=== PATIENT | male | born 2000 | race Two or more races ===

== ENCOUNTER 2024-07-02 12:42 | Emergency (ER) | payer MEDICARE, BC ==
[~2024-07-02] VITALS: Ht 167.6 cm; Wt 95.3 kg
[2024-07-02 14:36] VITALS: BP 106/64; TEMP 98; O2SAT 99
== END 2024-07-02 14:37 | disposition home or self-care (01) ==
LOC: ER 13:00
DX: S01.111A Laceration without foreign body of right eyelid and periocular area, initial encounter (principal); F84.0 Autistic disorder; W01.198A Fall on same level from slipping, tripping and stumbling with subsequent striking against other object, initial encounter; Y93.E1 Activity, personal bathing and showering; Y92.098 Other place in other non-institutional residence as the place of occurrence of the external cause; Y99.8 Other external cause status

== ENCOUNTER 2024-12-18 15:38 | Emergency (ER) | payer MEDICARE, BC ==
[~2024-12-18] VITALS: Ht 172.7 cm; Wt 88.9 kg
[2024-12-18 16:03] VITALS: TEMP 98.6
[2024-12-18] MEDS ORDERED: LIDOCAINE 1%-EPI 1:100,000 20 ML VIAL ONE (16:53)
[2024-12-18] MEDS ORDERED: LET SOLN TOPICAL 8 ML UDC TP ONE (16:55)
[2024-12-18] MEDS ORDERED: TDAP [DIPH/PERTUSSIS/TET] 0.5 ML VIAL IM ONE (16:55)
[2024-12-18] MEDS: LET SOLN TOPICAL 8 ML UDC TP ONE (17:00)
[2024-12-18] MEDS: TDAP [DIPH/PERTUSSIS/TET] 0.5 ML VIAL IM ONE (17:00)
[2024-12-18] MEDS: LIDOCAINE 1%-EPI 1:100,000 50 ML VIAL IJ ONE (17:00)
[2024-12-18] MEDS ORDERED: CEPH250S PO (19:09)
[2024-12-18 20:20] VITALS: BP 125/79; O2SAT 99
== END 2024-12-18 20:00 | disposition home or self-care (01) ==
LOC: ER 15:38
DX: S91.311A Laceration without foreign body, right foot, initial encounter (principal); F84.0 Autistic disorder; F42.9 Obsessive-compulsive disorder, unspecified; X58.XXXA Exposure to other specified factors, initial encounter; Y93.89 Activity, other specified; Y92.89 Other specified places as the place of occurrence of the external cause; Y99.8 Other external cause status
CPT/HCPCS: 12002; 90471; 90715; 99283; A6403; J3490

== ENCOUNTER 2024-12-26 13:34 | Emergency (ER) | payer MEDICARE, BC ==
[~2024-12-26] VITALS: Ht 175.3 cm; Wt 88.9 kg
[~2024-12-26 13:34] MED LIST: CEPH250S PO
[2024-12-26 13:43] VITALS: BP 111/61; TEMP 98
[2024-12-26] MEDS ORDERED: AMOX500T2 PO (14:58)
[2024-12-26] MEDS ORDERED: SULF1TAB48 PO (14:58)
[2024-12-26 15:05] VITALS: O2SAT 99
== END 2024-12-26 15:05 | disposition home or self-care (01) ==
LOC: ER 13:46
DX: L03.115 Cellulitis of right lower limb (principal); S91.311D Laceration without foreign body, right foot, subsequent encounter; F42.9 Obsessive-compulsive disorder, unspecified; F84.0 Autistic disorder; X58.XXXD Exposure to other specified factors, subsequent encounter
CPT/HCPCS: 99283; A6403

== ENCOUNTER 2025-01-17 16:46 | Emergency (ER) | payer MEDICARE, BC ==
[~2025-01-17] VITALS: Ht 172.7 cm; Wt 72.6 kg
[~2025-01-17 16:46] MED LIST changes: +AMOX500T2 PO; +SULF1TAB48 PO
[2025-01-17 16:50] VITALS: TEMP 98.6
[2025-01-17] MEDS ORDERED: BACLOFEN (10 MG) 10 MG TABLET ONE (17:42)
[2025-01-17] MEDS ORDERED: HALOPERIDOL 5 MG TABLET ONE ×2 (17:42→17:45)
[2025-01-17] MEDS ORDERED: LORAZEPAM 1 MG TABLET ONE ×2 (17:42→19:26)
[2025-01-17] MEDS: LORAZEPAM 1 MG TABLET PO ONE ×2 (17:49→19:31)
[2025-01-17] MEDS: HALOPERIDOL 1 MG TABLET PO ONE (17:49)
[2025-01-17] MEDS: BACLOFEN (10 MG) 10 MG TABLET PO ONE (17:49)
[2025-01-17] MEDS ORDERED: LIDOCAINE 1%-EPI 1:100,000 20 ML VIAL ONE (19:28)
[2025-01-17] MEDS: LIDOCAINE 1%-EPI 1:100,000 50 ML VIAL IJ ONE (19:31)
[2025-01-17] MEDS ORDERED: AMOX-430 PO (20:04)
[2025-01-17 20:21] VITALS: BP 116/79; O2SAT 99
== END 2025-01-17 20:22 | disposition home or self-care (01) ==
LOC: ER 16:48
DX: S51.811A Laceration without foreign body of right forearm, initial encounter (principal); F84.0 Autistic disorder; F42.9 Obsessive-compulsive disorder, unspecified; F41.9 Anxiety disorder, unspecified; W22.09XA Striking against other stationary object, initial encounter; Y93.89 Activity, other specified; Y92.89 Other specified places as the place of occurrence of the external cause; Y99.9 Unspecified external cause status
CPT/HCPCS: 99284; 12002; J3490 ×2

== ENCOUNTER 2025-02-18 13:03 | Emergency (ER) | payer MEDICARE, BC ==
[~2025-02-18] VITALS: Ht 172.7 cm; Wt 73.9 kg
[~2025-02-18 13:03] MED LIST changes: +AMOX-430 PO
[2025-02-18] MEDS ORDERED: LORAZEPAM 1 MG TABLET ONE ×2 (14:49→14:56)
[2025-02-18] MEDS ORDERED: BACLOFEN (10 MG) 10 MG TABLET ONE (14:50)
[2025-02-18] MEDS ORDERED: HALOPERIDOL 5 MG TABLET ONE (14:50)
[2025-02-18] MEDS: BACLOFEN (10 MG) 10 MG TABLET PO ONE (14:57)
[2025-02-18] MEDS: LORAZEPAM 1 MG TABLET PO ONE (14:57)
[2025-02-18] MEDS: HALOPERIDOL 1 MG TABLET PO ONE (14:57)
[2025-02-18] MEDS ORDERED: KETAMINE HCL (500MG/10ML) 50 MG/ML VIAL ONE (15:55)
[2025-02-18] MEDS: KETAMINE HCL (500MG/5 ML) 100 MG/ML VIAL IM ONE (16:04)
[2025-02-18] MEDS ORDERED: IOHEXOL-300 100 ML VIAL IV ONE (16:16)
[2025-02-18] MEDS ORDERED: CT SWABBABLE VALVE TRANS SET 1 EA INFUS.SET MC ONE (16:16)
[2025-02-18] MEDS ORDERED: IV NS 0.9% 250 ML IV ONE (16:16)
[2025-02-18 16:28] LABS: PLATELET COUNT (AUTO) 644 K/uL (150-450); RED BLOOD CELL COUNT(AUTO) 4.81 MIL/uL (4.5-6.0); RED CELL DISTRIBUTION WIDTH 14.8 % (11.5-15.0); WHITE BLOOD COUNT (AUTO) 26.9 K/uL (4.3-11.0)
[2025-02-18] MEDS ORDERED: LORAZEPAM INJ 2 MG/ML VIAL ONE ×2 (16:30→23:09)
[2025-02-18] MEDS: LORAZEPAM INJ 2 MG/ML VIAL IV ONE ×2 (16:32→23:12)
[2025-02-18] MEDS: KETAMINE HCL (500MG/5 ML) 100 MG/ML VIAL IV ONE (16:39)
[2025-02-18 16:40] LABS: INR 1.04 (0.91-1.10)
[2025-02-18] MEDS ORDERED: VANCOMYCIN 1 GM /D5W 250 ML PB IV ONE (16:50)
[2025-02-18] MEDS ORDERED: PIPERACI/TAZO 3.375GM/D5W 50ML PB IV ONE ×2 (16:50→23:09)
[2025-02-18] MEDS: PIPERACILLIN /TAZOBACTAM 3.375 G in IV D5W 50 ML IV ONE ×2 (16:55→23:19)
[2025-02-18 17:29] LABS: CALCIUM, SERUM 9.5 mg/dL (8.5-10.1); CREATININE 1.7 mg/dL (0.6-1.3); SODIUM SERUM 135 mmol/L (136-145); UREA NITROGEN, BLOOD 11 mg/dL (7-18)
[2025-02-18] MEDS: VANCOMYCIN 1 GM in IV D5W 250 ML IV ONE (17:30)
[2025-02-18] MEDS: dexaMETHasone SOD PHOSPHATE 10 MG/ML VIAL IV ONE (17:53)
[2025-02-18 17:58] LABS: FRACTIONATED INSPIRED OXYGEN-V 21.0 %; SITE, VBG VBG - N/A; VBG BASE EXCESS -5.4 mmol/L (-2.0-3.0); VBG HCO3 20.0 mmol/L (22.0-29.0); VBG MetHb 0.5 % (0.5-1.5); VBG OXYGEN SATURATION 67.6 % (60.0-85.0); VBG PCO2 38.7 mmHg (38.0-54.0); VBG PH 7.332 (7.320-7.430); VBG PO2 38.5 mmHg (23.0-48.0); VBG TOTAL HEMOGLOBIN 13.2 G/dL (13.5-17.5)
[2025-02-18 17:58] LABS: ASPARTATE AMINOTRANSFERASE 49 U/L (15-37)
[2025-02-18] MEDS: IV NS 0.9% 1,000 ML BAG IV ONE (18:00)
[2025-02-18 18:02] LABS: LACTIC ACID 12.4 mmol/L (0.4-2.0); TOTAL PROTEIN, SERUM 7.7 g/dL (6.4-8.2)
[2025-02-18] MEDS ORDERED: PROPOFOL 20 ML IV ONE ×2 (18:15→18:38)
[2025-02-18 18:17] LABS: CREATINE KINASE, TOTAL 513.0 U/L (39-308)
[2025-02-18] MEDS ORDERED: FLUORESCEIN SODIUM OPHTH 1 EA STRIP ONE (18:33)
[2025-02-18] MEDS ORDERED: TETRAcaine 5 ML BOTTLE ONE (18:33)
[2025-02-18] MEDS: PROPOFOL 200 MG/20 ML VIAL IV ONE (18:41)
[2025-02-18] MEDS: FLUORESCEIN SODIUM OPHTH 1 EA STRIP OP ONE (18:56)
[2025-02-18] MEDS ORDERED: BACL10TA PO (23:08)
[2025-02-19 00:31] VITALS: BP 130/75; TEMP 98; O2SAT 100
[2025-02-19] MEDS ORDERED: PIPERACILLIN /TAZOBACTAM 3.375 G in IV D5W 50 ML IV ONE (02:00)
== END 2025-02-19 00:32 | disposition home or self-care (01) ==
LOC: ER 13:07
DX: S00.93XA Contusion of unspecified part of head, initial encounter (principal); F95.2 Tourette's disorder; F84.0 Autistic disorder; L03.213 Periorbital cellulitis; F42.9 Obsessive-compulsive disorder, unspecified; F41.9 Anxiety disorder, unspecified; E87.20 Acidosis, unspecified; A41.9 Sepsis, unspecified organism; X58.XXXA Exposure to other specified factors, initial encounter; Y93.11 Activity, swimming; Y92.34 Swimming pool (public) as the place of occurrence of the external cause; Y99.9 Unspecified external cause status
CPT/HCPCS: 99291; 70450; 96375; 96365; 96366; 99292; 93005; 82803 ×2; 70487; 84145; 85025; 80048; 82550; 87040 ×2; 83605 ×2; 80076; 36415; 85730; 80143; 80179; 96372; J2060 ×2; J1100; J2704 ×2; J3490; J3373 ×2; J2543 ×5; J7060 ×3; J7030; J7050; Q9967; 82553